=== PATIENT | male | born 1985 | race African-American/Black ===

== ENCOUNTER 2016-07-12 03:53 | Emergency (ER) ==
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
[2016-07-12] MEDS ORDERED: NORCO-5 PO ONE (04:58)
[2016-07-12] MEDS ORDERED: PREDNISONE PO ONE (04:58)
[2016-07-12 05:04] VITALS: BP 138/78
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
== END 2016-07-12 05:06 | disposition home or self-care (01) ==
LOC: ED 03:53
DX: M76.61 Achilles tendinitis, right leg (principal); M79.604 Pain in right leg; L90.5 Scar conditions and fibrosis of skin; F17.210 Nicotine dependence, cigarettes, uncomplicated
CPT/HCPCS: J7512